=== PATIENT | male | born 1995 | race Caucasian/White ===

== ENCOUNTER 2020-06-01 19:29 | Emergency (ER) | payer OTHER ==
[~2020-06-01] VITALS: Ht 182.9 cm; Wt 115.5 kg
[2020-06-01 20:43] LABS: APPEARANCE,URINE CLEAR (CLEAR); BILIRUBIN,URINE NEGATIVE (NEGATIVE); GLUCOSE, URINE (UA) NEGATIVE (NEGATIVE); KETONES,URINE TRACE mg/dL (NEGATIVE); LEUKOCYTE ESTERASE ,URINE NEGATIVE (NEGATIVE); NITRATE,URINE NEGATIVE (NEGATIVE); OCCULT BLOOD,URINE TRACE (NEGATIVE); PH,URINE 5.5 (5.0-8.0); PROTEIN,URINE NEGATIVE (NEGATIVE); UROBILINOGEN,URINE 0.2 mg/dL (<=1.0)
[2020-06-01 20:53] LABS: BACTERIA,URINE None Seen /HPF (None Seen); RBC,URINE 0-2 /HPF (0-2); SQUAMOUS EPITHELIAL CELL,UR Rare /LPF (None Seen); WBC,URINE 0-2 /HPF (0-5)
[2020-06-01 21:09] VITALS: BP 148/88
== END 2020-06-01 21:10 | disposition home or self-care (01) ==
LOC: EMS 19:29
DX: B34.9 Viral infection, unspecified (principal); R30.0 Dysuria; F12.90 Cannabis use, unspecified, uncomplicated; Z88.6 Allergy status to analgesic agent
CPT/HCPCS: 87430; 99283